=== PATIENT | female | born 1965 | race Caucasian/White ===

== ENCOUNTER 2020-10-07 13:36 | Outpatient (CLI) | payer OTHER, SELFPAY ==
--- NOTE | ~2020-10-07 | XR_ITS ---
[id number] DATE: 10/07/2020 13:53 INDICATION: Right rib pain TECHNIQUE: PA chest. 3 views of the right ribs. COMPARISON: None FINDINGS: There is mild osteoarthritic spurring of the right humeral head. There is diffuse osteopeni a. There is mild rotatory dextroscoliosis of the thoracolumbar spine. Multilevel degenerative disc disea se of the lumbar spine. No right rib fracture or bone destruction is detected. Normal heart size. No hilar or mediastinal enlargement. No pulmonary infiltrate or consolidation, ple ural effusion or pulmonary vascular congestion or pneumothorax. IMPRESSION: No right rib fracture is detected No active cardiopulmonary disease Reviewed, dictated and finalized at [facility]. Reviewed, dictated and finalized at location A. MECHANIC
== END 2020-10-07 13:37 | disposition home or self-care (01) ==
LOC: ANHIMG 13:41
PROVIDERS: PCP Family Medicine; Visit Provider Family Medicine
DX: R07.81 Pleurodynia (principal)
CPT/HCPCS: 71101

== ENCOUNTER → 2020-11-04 17:11 | Outpatient (CLI) | payer OTHER, SELFPAY ==
--- NOTE | ~2020-11-04 | MM_ITS ---
EXAMINATION: MM screening [facility] BI w cate HISTORY: Screening TECHNIQUE: Craniocaudal and mediolateral oblique 3-D tomosynthesis images were obtained and synthetic 2-D images were generated. CAD analysis was submitted and interpreted. COMPARISON: Comparison to multiple prior studies sequentially, with oldest reviewed study dated 08/06. BREAST PARENCHYMAL COMPOSITION: The breasts are extremely dense, which lowers the sensitivity of mamm ography FINDINGS: There is no evidence of suspicious mass, calcification, or architectural distortion to sugg est malignancy in either breast. There has been no suspicious interval change. IMPRESSION: 1. No mammographic evidence of malignancy. 2. Recommend routine screening mammography in one year. BI-RADS Category 1: Negative Reviewed, dictated and finalized at location A. [employer]
== END ==
PROVIDERS: Visit Provider Obstetrics & Gynecology
DX: Z12.31 Encounter for screening mammogram for malignant neoplasm of breast (principal)
CPT/HCPCS: 77063; 77067

== ENCOUNTER → 2021-11-18 15:05 | Outpatient (CLI) | payer BC, OTHER, SELFPAY ==
--- NOTE | ~2021-11-18 | MM_ITS ---
EXAMINATION: MM screening [facility] BI w cate HISTORY: Screening mammogram TECHNIQUE: Craniocaudal and mediolateral oblique 3-D tomosynthesis images were obtained and synthetic 2-D images were generated. CAD analysis was submitted and interpreted. COMPARISON: 11/04/2020, 09/29/2019, 09/14/2018 BREAST PARENCHYMAL COMPOSITION: The breasts are extremely dense, which lowers the sensitivity of mamm ography. FINDINGS: There is no suspicious mass, calcification, or architectural distortion to suggest malignan cy in either breast. There has been no suspicious interval change. IMPRESSION: 1. No mammographic evidence of malignancy. 2. Recommend routine screening mammography in one year. BI-RADS Category 1: Negative Reviewed, dictated and finalized at location A.
== END ==
PROVIDERS: Visit Provider Obstetrics & Gynecology
DX: Z12.31 Encounter for screening mammogram for malignant neoplasm of breast (principal)
CPT/HCPCS: 77063; 77067

== ENCOUNTER 2022-02-13 12:45 | Outpatient (CLI) | payer BC, SELFPAY ==
--- NOTE | ~2022-02-13 | MR_ITS ---
EXAMINATION: MR abdomen wo/w con DATE: 02/13/2022 14:08 INDICATION: Right lower quadrant abdominal pain for 3 weeks. TECHNIQUE: Magnetic resonance imaging (MRI) of the abdomen was performed without and with 12 mL Multi Shirley intravenous contrast. COMPARISON: CT abdomen and pelvis 03/27/2012 FINDINGS: There are cysts in the liver measuring up to 7 mm. The gallbladder is normal in size. The common duct is normal and measures 4 mm. The spleen, pancreas, adrenal glands, and left kidney are normal. There is a 4 mm cyst in right kidney. There are no dilated loops of bowel. Note that the expected area of the appendix is not included on axial images. There are no pathologically enlarged lymph nodes. There is no free intraperitoneal fluid. IMPRESSION: 1. No etiology for the patient's symptoms. Reviewed, dictated and finalized at location B.
[2022-02-13 13:23] LABS: Estimated Glomerular Filt Rate > 60
== END 2022-02-13 12:46 | disposition home or self-care (01) ==
PROVIDERS: Visit Provider Obstetrics & Gynecology
DX: R10.2 Pelvic and perineal pain (principal)
CPT/HCPCS: 74183; A9577